=== PATIENT | male | born 1945 | race Caucasian/White ===

== ENCOUNTER 2016-06-20 00:50 | Emergency (ER) | payer MEDICARE, MEDICAID ==
[~2016-06-20] VITALS: Ht 188 cm; Wt 67.5 kg
[~2016-06-20 00:50] MED LIST: AMLO-145 PO; ASPI-535 PO; FURO40TA4 PO; HYDR-762 PO; IBUP-1542 PO; IBUP800T25; IBUP800T25 PO; LISI20TA11; LISI20TA11 PO; METO-104; Maxide; OXYC30TA; OXYC30TA64 PO
[2016-06-20 00:54] VITALS: Ht 188 cm; Wt 67.5 kg
--- NOTE | 2016-06-20 01:55 | ERA ---
ER Documentation Chief Complaint Date/Time DATE: 06/20/16 TIME: 01:53 Chief Complaint states hit a wall about 1 hour ago, c/o right wrist pain HPI Patient is a 71-year-old male with a chief complaint of wrist pain. Patient presents to our status post [facility]. Patient now has pain in the right wrist. Patient is right-handed. Patient denies any numbness or tingling or loss of sensation. Patient denies trauma to any other part of his body. Patient denies taking any medications to alleviate the symptoms. Patient denies any medical conditions. ROS All systems reviewed and are negative except as per history of present illness. Medications Home Meds Active Scripts Ibuprofen* (Motrin*) 400 Mg Tab, 400 MG PO Q6H Y for PAIN AND OR ELEVATED TEMP, #30 TAB Prov:BRONSON ELLIS PA-C 06/20/16 Hydrocodone Bit-Acetaminophen* ([place]*) 10-325 Mg Tablet, 1 TAB PO Q6 Y for PAIN , #7 TAB Prov:CHALINO ISLAS MD 02/16/15 Ibuprofen* (Motrin*) 600 Mg Tab, 600 MG PO Q6H Y for PAIN AND OR ELEVATED TEMP, #30 TAB Prov:CHALINO ISLAS MD 02/16/15 Reported Medications Furosemide* (Furosemide*) 40 Mg Tablet, 40 MG PO DAILY, TAB 02/16/15 Lisinopril* (Lisinopril*) 20 Mg Tablet, 20 MG PO BID 03/23/12 Aspirin Ec (Aspir 81) 81 Mg Tablet.dr, 81 MG PO DAILY 03/23/12 Amlodipine Besylate* (Amlodipine Besylate*) 5 Mg Tablet, 5 MG PO DAILY 03/13/12 Allergies Allergies: Coded Allergies: No Known Drug Allergy (Verified Allergy, Unknown, 02/08/08) PMhx/Soc History of Surgery: Yes (prostate, HERNIA SURGERY RIGHT INGUINAL) Anesthesia Reaction: No Hx Neurological Disorder: No Hx Respiratory Disorders: No Hx Cardiac Disorders: Yes (HTN) Hx Psychiatric Problems: No Hx Miscellaneous Medical Probl: No Hx Alcohol Use: Yes ("few shots of tequila", 2 beers earlier today) Hx Substance Use: No Hx Tobacco Use: Yes Smoking Status: Former smoker Physical Exam Vitals Vital Signs Date Time Temp Pulse Resp B/P Pulse Ox O2 Delivery O2 Flow Rate FiO2 06/20/16 00:54 97.0 87 20 180/91 100 Physical Exam Const: Anxious appearing 71-year-old male Head: Atraumatic Eyes: Normal Conjunctiva ENT: Normal External Ears, Nose and Mouth. Neck: Full range of motion..~ No meningismus. Resp: Clear to auscultation bilaterally Cardio: Regular rate and rhythm, no murmurs Abd: Soft, non tender, non distended. Normal bowel sounds Skin: No petechiae or rashes Back: No midline or flank tenderness Ext: No cyanosis, or edema. Denies snuffbox tenderness. Limited range of motion in the right wrist secondary to pain. Neur: Awake and alert. Neurovascularly intact bilaterally. Psych: Normal Mood and Affect Results 24 hrs Current Medications Medications (Trade) Dose Ordered Sig/Lazaro Route PRN Reason Start Time Stop Time Status Last Admin Dose Admin Ibuprofen (Motrin) 400 mg ONCE ONCE PO 06/20/16 02:00 06/20/16 02:01 DC 06/20/16 01:35 Procedures/MDM 71-year-old male presenting tires after physician within back to his right wrist. Denies snuffbox tenderness. Patient was given ibuprofen for pain already for x-ray. Dr. Sales and I at the x-rays. X-rays are unremarkable. We will go ahead and equipment patient with a long arm thumb spica for possible occult scaphoid fracture. Have instructed the patient to follow-up with primary care provider for referral to range management specialist for more thorough evaluation for possible occult scaphoid fracture. Have given the patient discharge instructions with return precautions. Departure Diagnosis: Primary Impression: Wrist injury Qualified Code: S69.91XA - Wrist injury, right, initial encounter Additional Impression: Pain in wrist Qualified Code: M25.531 - Right wrist pain Condition: Stable Additional Instructions: Follow up with your PCP within the next 1-3 days for a more thorough evaluation and a possible referral to a specialist. Return the the emergency department immediately if symptoms worsen or change. If you have any questions regarding medications, ask your pharmacist or us before you leave. If any adverse reactions occur while taking your medications, discontinue the treatment and return to the emergency department immediately. Take your medications as directed, and complete the entire course of treatment. BRONSON ELLIS PA-C Jun 20, 2016 01:55
[2016-06-20] MEDS ORDERED: IBUPROFEN 200 MG TAB PO ONE (02:00)
[2016-06-20] MEDS ORDERED: IBUP400T22 PO (02:12)
--- NOTE | 2016-06-20 02:16 | RADRPT ---
PROCEDURE: X-ray right wrist. CLINICAL INDICATION: Trauma TECHNIQUE: 3 views of the right wrist and dedicated scaphoid view. COMPARISON: Trauma to the right wrist. FINDINGS: Mild juxtaarticular demineralization. No acute fracture dislocation. Vascular calcifications. Sof t tissues otherwise unremarkable. IMPRESSION: Mild juxtaarticular demineralization, without acute fracture. RPTAT: [facility] Physician Larry Date Time Electronically viewed and signed by Rosa Bocanegra Physician on 06/20/2016 02:16 RS/
== END 2016-06-20 02:50 | disposition home or self-care (01) ==
LOC: FTE 00:50
DX: S69.91XA Unspecified injury of right wrist, hand and finger(s), initial encounter (principal); I10 Essential (primary) hypertension; W22.01XA Walked into wall, initial encounter; Y92.9 Unspecified place or not applicable; Z87.891 Personal history of nicotine dependence